=== PATIENT | male | born 1990 | race Two or more races ===

== ENCOUNTER 2022-06-23 12:07 | Emergency (ER) | payer OTHER ==
[~2022-06-23] VITALS: Ht 175.3 cm; Wt 77.1 kg
== END 2022-06-23 19:48 | disposition home or self-care (01) ==
LOC: ER 12:07
DX: S93.411A Sprain of calcaneofibular ligament of right ankle, initial encounter (principal); X37.1XXA Tornado, initial encounter; Y93.02 Activity, running; Y92.413 State road as the place of occurrence of the external cause